=== PATIENT | female | born 1985 | race Caucasian/White ===

== ENCOUNTER 2020-05-23 01:42 | Inpatient (IN) ==
[2020-05-23] MEDS ORDERED: ceFAZolin 3,000 MG in SYRINGE 1 EACH IV ONE (03:30)
[2020-05-23] MEDS: LACTATED RINGERS 1,000 ML IV SCH ×2 (03:35→04:52)
[2020-05-23 03:40] LABS: Basophils # 0.1 10*3/uL (0.0-0.2); Basophils % 0.5 % (0.0-0.8); Eosinophils # 0.2 10*3/uL (0.0-0.87); Eosinophils % 1.8 % (0.00-10.9); Hematocrit 40.9 VOL% (35.7-47.0); Hemoglobin 13.9 GM/DL (12.0-16.0); Immature Granulocytes % 0.9 %; Immature Granulocytes Absolute 0.12 #; Lymphocytes # 2.8 10*3/uL (1.4-4.0); Lymphocytes % 21.6 % (21.3-54.2); Mean Corpuscular Volume 94.9 FL (87-102); Mean Platelet Volume 11.2 FL (9.6-12.0); Monocytes % 6.1 % (1.7-12.7); Neutrophils % 69.1 % (38.7-73.9); Platelet Count 234 T/CUMM (130-400); Red Blood Count 4.31 MC/CUMM (3.8-5.5); Red Cell Distribution Width 13.9 % (9.3-17.3)
[2020-05-23 04:37] LABS: Hypochromasia Slight; Lymphocytes 24 % (20-55); Platelet Estimate Adequate; Segmented Neutrophils 73 % (50-85); Total Cells Counted 100
[2020-05-23] MEDS ORDERED: TERBUTALINE 1 MG/1 ML VIAL SUBCUT ONE (04:58)
[2020-05-23 05:39] LABS: Bilirubin,Urine Negative (Negative); Blood, Urine Negative (Negative); Glucose,Urine (UA) Negative (Negative); Ketones,Urine Negative (Negative); Nitrite,Urine Negative (Negative); Protein,Urine Negative; RBC,Urine 1 /HPF (0-4); Urine Appearance CLEAR (Clear); Urine Color Straw (Yellow); Urine Urobilinogen < 2.0 EU/DL (0.2-1.0)
[2020-05-23 05:42] LABS: INR 0.9; PT Patient Result 9.9 SECS (9.8-11.9)
[2020-05-23] MEDS ORDERED: CITRIC ACID/SODIUM CITRATE 30 ML UDCUP PO ONE (06:00)
[2020-05-23] MEDS ORDERED: FAMOTIDINE 20 MG/2 ML VIAL IV ONE (06:00)
[2020-05-23] MEDS ORDERED: OXYTOCIN/LR 20 UNIT/1,000 ML BAG IV ONE ×2 (06:30→07:32)
[2020-05-23 07:29] LABS: Cord Arterial Blood HCO3 20.2 MMOL/L
[2020-05-23 07:32] LABS: Cord Venous Blood HCO3 21.4 MMOL/L; Cord Venous Blood PCO2 45.1 MMHG; Cord Venous Blood PO2 19.7
[2020-05-23] MEDS ORDERED: DIPH/TET/ACEL PERT BOOSTER VACCINE 0.5 ML VIAL IM ONE (07:32)
[2020-05-23] MEDS ORDERED: LANOLIN 50% CREAM 0.3 OZ TUBE TOP PRN (07:32)
[2020-05-23] MEDS ORDERED: MEASLES/MUMPS/RUBELLA VACCINE 0.5 ML VIAL SUBCUT ONE (07:32)
[2020-05-23] MEDS ORDERED: RHO(D) IMMUNE GLOBULIN 300 MCG SYRINGE IM ONE (07:32)
[2020-05-23] MEDS ORDERED: ACETAMINOPHEN 325 MG TABLET PO PRN (07:32)
[2020-05-23] MEDS ORDERED: BENZOCAINE 20%/MENTHOL 0.5% SPRAY 56 GM CAN TOP PRN (07:32)
[2020-05-23] MEDS ORDERED: BISACODYL 10 MG SUPP RECTAL PRN (07:32)
[2020-05-23] MEDS ORDERED: WITCH HAZEL PADS 100/JAR TOP PRN (07:32)
[2020-05-23] MEDS ORDERED: HYDROCORTISONE 2.5% RECTAL CREAM 30 GM TUBE TOP PRN (07:32)
[2020-05-23] MEDS ORDERED: ONDANSETRON 4 MG/2 ML VIAL IV PRN (07:32)
[2020-05-23] MEDS ORDERED: MORPHINE 10 MG/10 ML VIAL ONE (07:51)
[2020-05-23] MEDS ORDERED: fentaNYL 100 MCG/2 ML VIAL ONE (07:51)
[2020-05-23] MEDS ORDERED: BUPIVACAINE SPINAL 0.75% 2 ML AMP SPINAL ONE (07:52)
[2020-05-23] MEDS ORDERED: PHENYLEPHRINE 1 MG/10 ML SYRINGE IV ONE (07:52)
[2020-05-23] MEDS ORDERED: diphenhydrAMINE 50 MG/1 ML VIAL IV PRN (08:13)
[2020-05-23] MEDS ORDERED: BUPIVACAINE MPF 0.25% 30 ML VIAL ONE (08:48)
[2020-05-23] MEDS: KETOROLAC 30 MG/1 ML VIAL IV PRN ×2 (10:32→17:45)
[2020-05-23] MEDS ORDERED: ceFAZolin 2,000 MG in PREMIX 1 EACH IV SCH (15:00)
[2020-05-23] MEDS ORDERED: METHYLERGONOVINE 0.2 MG/1 ML AMP IM ONE (15:59)
[2020-05-23] MEDS: ceFAZolin 2,000 MG in PREMIX 1 EACH IV SCH (16:25)
[2020-05-23] MEDS: oxyCODONE/ACETAMINOPHEN 5-325 MG TABLET PO PRN (22:40)
[2020-05-24] MEDS: ceFAZolin 2,000 MG in PREMIX 1 EACH IV SCH (00:57)
[2020-05-24] MEDS: KETOROLAC 30 MG/1 ML VIAL IV PRN (04:36)
[2020-05-24 06:09] LABS: Basophils # 0.1 10*3/uL (0.0-0.2); Basophils % 0.6 % (0.0-0.8); Eosinophils # 0.3 10*3/uL (0.0-0.87); Eosinophils % 2.1 % (0.00-10.9); Hematocrit 36.5 VOL% (35.7-47.0); Hemoglobin 12.2 GM/DL (12.0-16.0); Immature Granulocytes % 0.6 %; Immature Granulocytes Absolute 0.07 #; Lymphocytes # 2.2 10*3/uL (1.4-4.0); Lymphocytes % 18.2 % (21.3-54.2); Mean Corpuscular HGB Conc 33.4 GM/DL (32-36); Mean Corpuscular Volume 95.5 FL (87-102); Mean Platelet Volume 11.1 FL (9.6-12.0); Monocytes % 6.1 % (1.7-12.7); Neutrophils % 72.4 % (38.7-73.9); Platelet Count 204 T/CUMM (130-400); Red Blood Count 3.82 MC/CUMM (3.8-5.5); Red Cell Distribution Width 14.4 % (9.3-17.3); White Blood Count 12.3 T/CUMM (4-12)
[2020-05-24] MEDS: oxyCODONE/ACETAMINOPHEN 5-325 MG TABLET PO PRN ×3 (08:03→19:48)
[2020-05-24] MEDS: IBUPROFEN 800 MG TABLET PO PRN ×3 (08:03→20:46)
[2020-05-24] MEDS ORDERED: SIMETHICONE CHEW 80 MG TABLET PO PRN (11:14)
[2020-05-24] MEDS: MAGNESIUM HYDROXIDE SUSP 30 ML UDCUP PO PRN ×2 (11:54→20:46)
[2020-05-24] MEDS: DOCUSATE SODIUM 100 MG CAPSULE PO SCH ×2 (15:16→20:46)
[2020-05-25] MEDS: oxyCODONE/ACETAMINOPHEN 5-325 MG TABLET PO PRN ×2 (02:16→08:28)
[2020-05-25] MEDS: DOCUSATE SODIUM 100 MG CAPSULE PO SCH (08:27)
[2020-05-25] MEDS: MAGNESIUM HYDROXIDE SUSP 30 ML UDCUP PO PRN (08:27)
[2020-05-25] MEDS: IBUPROFEN 800 MG TABLET PO PRN (08:27)
[2020-05-25] MEDS ORDERED: DIPH/TET/ACEL PERT BOOSTER VACCINE 0.5 ML VIAL IM ONE (09:51)
[2020-05-25] MEDS ORDERED: INFLUENZA VIRUS VACCINE 0.5 ML SYRINGE IM ONE (09:51)
[2020-05-25 10:42] VITALS: BP 114/70
== END 2020-05-25 12:20 | disposition home or self-care (01) | DRG 540 ==
LOC: N.LDOUT 01:42 → N.LD 01:43 → N.OB 09:52
PROVIDERS: ADMIT Specialist; ATTEND Specialist
PROC: LDCSECT (ICD-10-PCS; 2020-05-23 06:16)